=== PATIENT | female | born 1965 | race Caucasian/White ===

== ENCOUNTER 2019-10-23 09:44 | Emergency (ER) | payer MEDICAID ==
[~2019-10-23] VITALS: Ht 152.4 cm; Wt 65.0 kg
[2019-10-23 10:15] VITALS: BP 129/74
== END 2019-10-23 12:20 | disposition home or self-care (01) ==
LOC: ER 09:45
DX: J06.9 Acute upper respiratory infection, unspecified (principal); J45.909 Unspecified asthma, uncomplicated
CPT/HCPCS: 71045; 99283

== ENCOUNTER 2023-07-27 16:06 | Emergency (ER) | payer MEDICAID ==
[~2023-07-27] VITALS: Ht 154.9 cm; Wt 54.3 kg
[2023-07-27 17:38] LABS: BILIRUBIN,URINE NEGATIVE (Neg); CLARITY,URINE CLEAR (Clear); COLOR,URINE YELLOW (Yellow); GLUCOSE, URINE NEGATIVE (Neg); KETONES,URINE NEGATIVE (Neg); LEUKOCYTE ESTERASE ,URINE NEGATIVE (Neg); NITRITES, URINE NEGATIVE (Neg); OCCULT BLOOD,URINE NEGATIVE (Neg); PROTEIN,URINE NEGATIVE (Neg); UROBILINOGEN,URINE 0.2 E.U/dL (0.2-1.0)
[2023-07-27 17:39] LABS: UA COLLECTION TYPE NON-SPECIFIED
[2023-07-27 17:39] LABS: ALANINE AMINOTRANSFERASE 41 U/L (12-78); ALBUMIN 2.6 G/DL (3.4-5.0); ALBUMIN/GLOBULIN RATIO 0.9 (1.1-1.5); ALKALINE PHOSPHATASE 127 IU/L (46-116); ANION GAP 6 (8-16); ASPARTATE AMINO TRANSFERASE 48 U/L (10-37); BILIRUBIN,TOTAL 0.8 MG/DL (0.1-1.0); BLOOD UREA NITROGEN 7 MG/DL (7-18); BUN/CREATININE RATIO 11.1 (10.0-20.0); CALCIUM 8.8 MG/DL (8.5-10.1); CHLORIDE 100 MMOL/L (99-107); CREATININE 0.63 MG/DL (0.40-0.90); GLUCOSE 93 MG/DL (70-104); POTASSIUM 3.7 MMOL/L (3.5-5.1); SODIUM 136 MMOL/L (135-145); TOTAL CARBON DIOXIDE 30.4 MMOL/L (24-32); TOTAL PROTEIN 5.5 G/DL (6.4-8.2); eCRCL 72 ML/MIN; eGFR > 90 ML/MIN
[2023-07-27 17:40] LABS: BASOPHILS % (AUTO) 0.3 % (0-1); EOSINOPHILS # (AUTO) 0.2 X10'3 (0-0.9); HEMATOCRIT 40.2 % (35.0-45.0); HEMOGLOBIN 13.3 g/dl (12.0-16.0); LYMPHOCYTES # (AUTO) 1.8 X10'3 (1.1-4.8); LYMPHOCYTES % (AUTO) 25.4 % (21-51); MEAN CORPUSCULAR HEMOGLOBIN 33.7 PG (27.0-31.0); MEAN CORPUSCULAR HGB CONC 33.2 g/dL (33.0-36.5); MEAN CORPUSCULAR VOLUME 101.5 FL (78-98); MEAN PLATELET VOLUME 7.4 FL (7.4-10.4); MONOCYTES # (AUTO) 0.6 X10'3 (0-0.9); MONOCYTES % (AUTO) 8.2 % (2-12); NEUTROPHILS # (AUTO) 4.5 X10'3 (1.8-7.7); NEUTROPHILS % (AUTO) 63.1 % (42-75); PLATELET COUNT 246 X10'3 (140-440); RED BLOOD COUNT 3.96 X10'6 (4.20-5.60); RED CELL DISTRIBUTION WIDTH 16.4 % (11.5-14.5); WHITE BLOOD COUNT 7.1 X10'3 (4.5-11.0)
[2023-07-27 17:42] LABS: ETHANOL < 10 MG/DL (<10)
[2023-07-27 17:53] LABS: URINE AMPHETAMINE SCREEN NEGATIVE (Neg); URINE BARBITUATE SCREEN NEGATIVE (Neg); URINE BENZODIAZEPINES SCREEN NEGATIVE (Neg); URINE CANNABINOID SCREEN NEGATIVE (Neg); URINE COCAINE SCREEN NEGATIVE (Neg); URINE METHADONE SCREEN NEGATIVE (Neg); URINE OPIATE SCREEN NEGATIVE (Neg); URINE PHENCYCLIDINE SCREEN NEGATIVE (Neg)
[2023-07-27 21:16] VITALS: BP 105/57; PULSE 61; RESP 19; TEMP 98.3; O2SAT 93
== END 2023-07-27 21:25 | disposition home or self-care (01) ==
LOC: ER 16:07
DX: R53.1 Weakness (principal); J45.909 Unspecified asthma, uncomplicated; R29.6 Repeated falls; W19.XXXA Unspecified fall, initial encounter; Z91.81 History of falling; Y93.89 Activity, other specified; Y92.89 Other specified places as the place of occurrence of the external cause; Y99.8 Other external cause status
CPT/HCPCS: 36415; 70450; 71045; 80053; 80305; 80320; 81003; 82140; 82948; 84484; 85025; 93005; 99285

== ENCOUNTER 2023-10-31 09:13 | Inpatient (IN) | payer MEDICAID ==
[~2023-10-31] VITALS: Ht 152.4 cm; Wt 48.4 kg
[2023-10-31 12:07] LABS: BASOPHILS % (AUTO) 0.3 % (0-1); EOSINOPHILS % (AUTO) 0.8 % (0-6); HEMOGLOBIN 12.9 g/dl (12.0-16.0); LYMPHOCYTES # (AUTO) 1.2 X10'3 (1.1-4.8); LYMPHOCYTES % (AUTO) 27.1 % (21-51); MEAN CORPUSCULAR HEMOGLOBIN 34.9 PG (27.0-31.0); MEAN CORPUSCULAR VOLUME 102.6 FL (78-98); MEAN PLATELET VOLUME 7.2 FL (7.4-10.4); MONOCYTES # (AUTO) 0.5 X10'3 (0-0.9); MONOCYTES % (AUTO) 10.9 % (2-12); NEUTROPHILS # (AUTO) 2.7 X10'3 (1.8-7.7); NEUTROPHILS % (AUTO) 60.9 % (42-75); PLATELET COUNT 231 X10'3 (140-440); RED CELL DISTRIBUTION WIDTH 14.8 % (11.5-14.5); WHITE BLOOD COUNT 4.4 X10'3 (4.5-11.0)
[2023-10-31] MEDS: thiamine 100mg/ml 2ml inj. IV ONE (12:11)
[2023-10-31] MEDS: normal saline 1000ML IV soln IVB ONE (12:13)
[2023-10-31 13:11] LABS: ALBUMIN 1.7 G/DL (3.4-5.0); ANION GAP 6 (8-16); BLOOD UREA NITROGEN 8 MG/DL (7-18); BUN/CREATININE RATIO 11.4 (10.0-20.0); CALCIUM 7.9 MG/DL (8.5-10.1); CHLORIDE 102 MMOL/L (99-107); GLUCOSE 74 MG/DL (70-104); POTASSIUM 3.5 MMOL/L (3.5-5.1); SODIUM 139 MMOL/L (135-145); TOTAL CARBON DIOXIDE 31.4 MMOL/L (24-32); eCRCL 61 ML/MIN; eGFR 85 ML/MIN
[2023-10-31 13:12] LABS: ETHANOL < 10 MG/DL (<10)
[2023-10-31 13:29] LABS: BILIRUBIN,URINE NEGATIVE (Neg); CLARITY,URINE CLEAR (Clear); COLOR,URINE YELLOW (Yellow); GLUCOSE, URINE NEGATIVE (Neg); KETONES,URINE NEGATIVE (Neg); LEUKOCYTE ESTERASE ,URINE NEGATIVE (Neg); NITRITES, URINE NEGATIVE (Neg); OCCULT BLOOD,URINE NEGATIVE (Neg); PROTEIN,URINE NEGATIVE (Neg); UROBILINOGEN,URINE 0.2 E.U/dL (0.2-1.0)
[2023-10-31 13:32] LABS: UA COLLECTION TYPE CLN CATCH MIDSTREAM
[2023-10-31 13:43] LABS: URINE AMPHETAMINE SCREEN NEGATIVE (Neg); URINE BARBITUATE SCREEN NEGATIVE (Neg); URINE BENZODIAZEPINES SCREEN NEGATIVE (Neg); URINE CANNABINOID SCREEN NEGATIVE (Neg); URINE COCAINE SCREEN NEGATIVE (Neg); URINE METHADONE SCREEN NEGATIVE (Neg); URINE OPIATE SCREEN NEGATIVE (Neg); URINE PHENCYCLIDINE SCREEN NEGATIVE (Neg)
[2023-10-31] MEDS ORDERED: iohexol 300mg/ml 100ml inj. ONE (13:51)
[2023-10-31] MEDS ORDERED: OMEP40CA21 PO (14:30)
[2023-10-31] MEDS: LidoCAINE 2% Topical Jelly 11mL syringe (UROJET) TOP ONE (15:40)
[2023-10-31] MEDS ORDERED: LEVO25TA7 PO (19:17)
[2023-10-31] MEDS ORDERED: TRAM50TA2 PO (19:17)
[2023-10-31] MEDS ORDERED: SERT-434 (19:17)
[2023-10-31] MEDS ORDERED: CYCL-145 PO (19:17)
[2023-10-31] MEDS ORDERED: GABAPENTIN (19:47)
[2023-10-31] MEDS: HYDROmorphone inj. 0.5 MG/0.5 ML DISP.SYRIN IV ONE ×2 (22:03→22:05)
[2023-10-31] MEDS: cyclobenzaprine 10mg tablet PO ONE (22:51)
[2023-11-01] MEDS ORDERED: magnesium 2GM in 50ml NS 50 ML IV PRN (03:40)
[2023-11-01] MEDS ORDERED: potassium Cl 20 mEq SR tablet PO PRN ×2 (03:40)
[2023-11-01] MEDS ORDERED: mag hydrox/Alum hydrox/simeth 30ml oral suspension PO PRN (03:40)
[2023-11-01] MEDS ORDERED: morphine 2 MG/ML inj. syringe IV PRN (03:40)
[2023-11-01] MEDS ORDERED: potassium Cl 40MEQ/1/2NS 520ml 520 ML IV PRN (03:40)
[2023-11-01] MEDS ORDERED: magnesium 4gm in 100ml NS 100 ML IV PRN (03:40)
[2023-11-01] MEDS ORDERED: acetaminophen 325mg tablet PO PRN (03:40)
[2023-11-01] MEDS ORDERED: magnesium Cl slow-release 64mg tablet PO PRN (03:40)
[2023-11-01] MEDS ORDERED: ondansetron/PF 4mg/2ml inj IV PRN (03:40)
[2023-11-01] MEDS ORDERED: LORazepam 2 mg/ml vial IV PRN (04:25)
[2023-11-01] MEDS ORDERED: dicyclomine 10 MG capsule PO PRN (04:25)
[2023-11-01] MEDS ORDERED: LORazepam 1 MG tablet PO PRN (04:25)
[2023-11-01] MEDS: normal saline 1000ml 1,000 ML IV SCH (05:29)
[2023-11-01 07:00] VITALS: BP 112/63; PULSE 77; RESP 16; TEMP 98.6; O2SAT 99
[2023-11-01] MEDS: levoTHYROXINE 25mcg tablet PO SCH (07:57)
[2023-11-01] MEDS: traMADol 50MG tablet PO PRN (07:57)
[2023-11-01] MEDS: cyclobenzaprine 10mg tablet PO SCH (07:58)
[2023-11-01] MEDS: docusate sod 100mg capsule PO SCH (07:58)
[2023-11-01] MEDS: multivitamins, therapeutics tablet PO SCH (07:58)
[2023-11-01] MEDS: folic acid 1mg tablet PO SCH (07:58)
[2023-11-01 08:00] VITALS: RESP 16; O2SAT 99
[2023-11-01] MEDS: lactose-reduced food (Ensure Enlive) - 237ml bottle PO SCH (08:00)
[2023-11-01] MEDS ORDERED: HYDROmorphone 1 mg/ml syringe IV SCH (08:00)
[2023-11-01] MEDS ORDERED: thiamine 100mg/ml 2ml inj. IV SCH (08:00)
[2023-11-01] MEDS: heparin, porcine 5000 units/ml vial SQ SCH (08:00)
[2023-11-01] MEDS: K and/or MAG REPLACEMENT MC SCH (08:00)
[2023-11-01] MEDS: thiamine inj. 500 MG in normal saline 100ml IV soln 100 ML IV SCH (08:11)
[2023-11-01 08:34] LABS: C-REACTIVE PROTEIN 0.15 MG/DL (0.0-0.5); CHOL/HDL RATIO 1.8 (0.00-4.99); CHOLESTEROL 131 MG/DL (0-200); HDL CHOLESTEROL 73 MG/DL (35-60); LDL CHOLESTEROL 39 MG/DL (50-100); PHOSPHORUS 2.5 MG/DL (2.3-4.5); THYROID STIMULATING HORMONE 4.99 ulU/ml (0.34-4.50); TRIGLYCERIDES 68 MG/DL (20-135)
[2023-11-01 08:41] LABS: CREATINE KINASE 1149 U/L (26-192)
[2023-11-01 09:47] LABS: HIV ANTIBODY 1&2 RAPID NON-REACTIVE (Neg)
[2023-11-01 11:47] LABS: HEMOGLOBIN A1C 4.5 % (4.5-6.2)
[2023-11-01] MEDS: pantoprazole 40 MG vial IV ONE (14:48)
[2023-11-01] MEDS: calcium carbonate 500mg tablet PO SCH (17:30)
[2023-11-01 18:00] VITALS: BP 124/69; PULSE 81; RESP 16; TEMP 98.4; O2SAT 99
[2023-11-01] MEDS: cyanocobalamin 500mcg tablet PO SCH (18:00)
[2023-11-01 20:00] VITALS: RESP 16; O2SAT 98
[2023-11-01] MEDS: dexamethasone sod phosphate 10mg/ml inj IV SCH (20:11)
[2023-11-01 22:00] VITALS: BP 95/54; PULSE 96; RESP 18; TEMP 98.5; O2SAT 99
[2023-11-02 06:00] VITALS: BP 132/66; PULSE 82; RESP 18; TEMP 98.3; O2SAT 98
[2023-11-02 08:23] VITALS: RESP 18; O2SAT 98
[2023-11-02] MEDS: pantoprazole 40mg Tablet.DR PO SCH (08:30)
[2023-11-02] MEDS: ferrous sulfate 325mg tablet PO SCH (08:31)
[2023-11-02 08:54] LABS: EOSINOPHILS % (AUTO) 0 % (0-6); LYMPHOCYTES # (AUTO) 0.6 X10'3 (1.1-4.8)
[2023-11-02] MEDS: magnesium hydroxide 30ml (MOM) UD suspension PO PRN (08:54)
[2023-11-02 08:59] LABS: BASOPHILS % (AUTO) 0.2 % (0-1); HEMOGLOBIN 13.2 g/dl (12.0-16.0); LYMPHOCYTES % (AUTO) 4.9 % (21-51); MEAN CORPUSCULAR HEMOGLOBIN 35.4 PG (27.0-31.0); MEAN CORPUSCULAR HGB CONC 33.9 g/dL (33.0-36.5); MEAN CORPUSCULAR VOLUME 104.5 FL (78-98); MEAN PLATELET VOLUME 7.8 FL (7.4-10.4); MONOCYTES # (AUTO) 0.2 X10'3 (0-0.9); MONOCYTES % (AUTO) 1.5 % (2-12); NEUTROPHILS # (AUTO) 10.6 X10'3 (1.8-7.7); NEUTROPHILS % (AUTO) 93.4 % (42-75); PLATELET COUNT 220 X10'3 (140-440); RED BLOOD COUNT 3.74 X10'6 (4.20-5.60); RED CELL DISTRIBUTION WIDTH 15.1 % (11.5-14.5); WHITE BLOOD COUNT 11.4 X10'3 (4.5-11.0)
[2023-11-02 09:14] LABS: APTT 25 SECONDS (22-32); PROTHROMBIN TIME 10.4 SECONDS (9.0-12.0)
[2023-11-02 10:00] VITALS: BP 113/68; PULSE 70; RESP 16; TEMP 97.5; O2SAT 99
[2023-11-02 11:22] LABS: ALANINE AMINOTRANSFERASE 107 U/L (12-78); ALBUMIN 1.4 G/DL (3.4-5.0); ALBUMIN/GLOBULIN RATIO 0.4 (1.1-1.5); ALKALINE PHOSPHATASE 216 IU/L (46-116); ANION GAP 7 (8-16); ASPARTATE AMINO TRANSFERASE 150 U/L (10-37); BILIRUBIN,TOTAL 0.6 MG/DL (0.1-1.0); BLOOD UREA NITROGEN 5 MG/DL (7-18); BUN/CREATININE RATIO 8.1 (10.0-20.0); CALCIUM 7.1 MG/DL (8.5-10.1); CHLORIDE 105 MMOL/L (99-107); CREATININE 0.62 MG/DL (0.40-0.90); PHOSPHORUS 3.4 MG/DL (2.3-4.5); POTASSIUM 4.1 MMOL/L (3.5-5.1); SODIUM 136 MMOL/L (135-145); TOTAL CARBON DIOXIDE 23.8 MMOL/L (24-32); TOTAL PROTEIN 4.6 G/DL (6.4-8.2); eCRCL 69 ML/MIN; eGFR > 90 ML/MIN
[2023-11-02 11:58] LABS: GLUCOSE 118 MG/DL (70-104)
[2023-11-02] MEDS: cholecalciferol (vitamin D3) 1,000 unit (25mcg) tablet PO SCH (12:47)
[2023-11-02] MEDS: morphine 2 MG/ML inj. syringe IV PRN (14:15)
[2023-11-02 18:00] VITALS: BP 113/62; PULSE 88; RESP 14; TEMP 98.3; O2SAT 98
[2023-11-02 20:00] VITALS: RESP 14; O2SAT 98
[2023-11-02] MEDS: proCHLORperazine 10 MG/2 ml inj IV ONE (21:49)
[2023-11-02] MEDS: diphenhydrAMINE 50 mg/ml inj IV ONE (21:49)
[2023-11-02] MEDS: ketorolac tromethamine 15mg/ml inj. IV ONE (21:50)
[2023-11-02 22:00] VITALS: BP 115/78; PULSE 88; RESP 16; TEMP 97.5; O2SAT 97
[2023-11-03 06:00] VITALS: BP 107/68; PULSE 84; RESP 16; TEMP 98.7; O2SAT 96
[2023-11-03 06:48] LABS: BASOPHILS % (AUTO) 0.2 % (0-1); EOSINOPHILS % (AUTO) 0 % (0-6); HEMATOCRIT 35.6 % (35.0-45.0); HEMOGLOBIN 11.8 g/dl (12.0-16.0); LYMPHOCYTES # (AUTO) 0.6 X10'3 (1.1-4.8); LYMPHOCYTES % (AUTO) 4.9 % (21-51); MEAN CORPUSCULAR HEMOGLOBIN 34.5 PG (27.0-31.0); MEAN CORPUSCULAR HGB CONC 33.1 g/dL (33.0-36.5); MEAN CORPUSCULAR VOLUME 104.2 FL (78-98); MEAN PLATELET VOLUME 7.6 FL (7.4-10.4); MONOCYTES # (AUTO) 0.7 X10'3 (0-0.9); MONOCYTES % (AUTO) 5.8 % (2-12); NEUTROPHILS # (AUTO) 10.1 X10'3 (1.8-7.7); NEUTROPHILS % (AUTO) 89.1 % (42-75); PLATELET COUNT 173 X10'3 (140-440); RED BLOOD COUNT 3.42 X10'6 (4.20-5.60); RED CELL DISTRIBUTION WIDTH 15.3 % (11.5-14.5); WHITE BLOOD COUNT 11.3 X10'3 (4.5-11.0)
[2023-11-03 06:59] LABS: APTT 23 SECONDS (22-32)
[2023-11-03 07:02] LABS: PROTHROMBIN TIME 10.5 SECONDS (9.0-12.0)
[2023-11-03 07:19] LABS: ALANINE AMINOTRANSFERASE 117 U/L (12-78); ALBUMIN 1.3 G/DL (3.4-5.0); ALBUMIN/GLOBULIN RATIO 0.4 (1.1-1.5); ALKALINE PHOSPHATASE 180 IU/L (46-116); ANION GAP 7 (8-16); ASPARTATE AMINO TRANSFERASE 151 U/L (10-37); BILIRUBIN,TOTAL 0.5 MG/DL (0.1-1.0); BLOOD UREA NITROGEN 7 MG/DL (7-18); BUN/CREATININE RATIO 10.9 (10.0-20.0); C-REACTIVE PROTEIN 1.07 MG/DL (0.0-0.5); CALCIUM 7.2 MG/DL (8.5-10.1); CHLORIDE 106 MMOL/L (99-107); CREATININE 0.64 MG/DL (0.40-0.90); GLUCOSE 108 MG/DL (70-104); PHOSPHORUS 2.6 MG/DL (2.3-4.5); SODIUM 137 MMOL/L (135-145); TOTAL CARBON DIOXIDE 24.5 MMOL/L (24-32); TOTAL PROTEIN 4.2 G/DL (6.4-8.2); eCRCL 67 ML/MIN; eGFR > 90 ML/MIN
[2023-11-03 08:06] VITALS: RESP 14; O2SAT 96
[2023-11-03] MEDS: levoTHYROXINE 25mcg tablet PO SCH (08:07)
[2023-11-03] MEDS: folic acid 1mg tablet PO SCH (08:10)
[2023-11-03] MEDS ORDERED: cyanocobalamin 500mcg tablet PO SCH (08:10)
[2023-11-03] MEDS: cyanocobalamin 1,000 mcg/ml inj IM SCH (08:14)
[2023-11-03] MEDS: folic acid/vitamin B complex w/vitamin C 0.8mg tablet PO SCH (09:37)
[2023-11-03 09:56] LABS: RHEUM FACTOR QUAL REFLEX TITER NEGATIVE (Neg)
[2023-11-03 10:00] VITALS: BP 113/62; PULSE 82; RESP 16; TEMP 97.3; O2SAT 97
[2023-11-03 18:00] VITALS: BP 112/82; PULSE 92; RESP 16; TEMP 98.4; O2SAT 96
[2023-11-03 22:00] VITALS: BP 112/64; PULSE 97; RESP 16; TEMP 97.4; O2SAT 97
[2023-11-04 06:54] LABS: BASOPHILS # (AUTO) 0.1 X10'3 (0-0.2); BASOPHILS % (AUTO) 1.1 % (0-1); EOSINOPHILS % (AUTO) 0.4 % (0-6); HEMATOCRIT 33.9 % (35.0-45.0); HEMOGLOBIN 11.3 g/dl (12.0-16.0); LYMPHOCYTES # (AUTO) 1.9 X10'3 (1.1-4.8); LYMPHOCYTES % (AUTO) 24.7 % (21-51); MEAN CORPUSCULAR HEMOGLOBIN 34.9 PG (27.0-31.0); MEAN CORPUSCULAR HGB CONC 33.3 g/dL (33.0-36.5); MEAN CORPUSCULAR VOLUME 104.8 FL (78-98); MEAN PLATELET VOLUME 7.2 FL (7.4-10.4); MONOCYTES # (AUTO) 0.5 X10'3 (0-0.9); MONOCYTES % (AUTO) 6.9 % (2-12); NEUTROPHILS # (AUTO) 5.2 X10'3 (1.8-7.7); NEUTROPHILS % (AUTO) 66.9 % (42-75); PLATELET COUNT 169 X10'3 (140-440); RED BLOOD COUNT 3.24 X10'6 (4.20-5.60); RED CELL DISTRIBUTION WIDTH 15.6 % (11.5-14.5); WHITE BLOOD COUNT 7.8 X10'3 (4.5-11.0)
[2023-11-04 07:00] VITALS: BP 122/70; PULSE 77; RESP 13; TEMP 97.2; O2SAT 95
[2023-11-04 07:11] LABS: APTT 23 SECONDS (22-32); INR 0.9 INR; PROTHROMBIN TIME 10.1 SECONDS (9.0-12.0)
[2023-11-04 07:46] LABS: ALANINE AMINOTRANSFERASE 130 U/L (12-78); ALBUMIN 1.1 G/DL (3.4-5.0); ALBUMIN/GLOBULIN RATIO 0.4 (1.1-1.5); ALKALINE PHOSPHATASE 152 IU/L (46-116); ANION GAP 4 (8-16); ASPARTATE AMINO TRANSFERASE 147 U/L (10-37); BILIRUBIN,TOTAL 0.4 MG/DL (0.1-1.0); BLOOD UREA NITROGEN 6 MG/DL (7-18); BUN/CREATININE RATIO 11.8 (10.0-20.0); CALCIUM 7.2 MG/DL (8.5-10.1); CHLORIDE 111 MMOL/L (99-107); CREATININE 0.51 MG/DL (0.40-0.90); GLUCOSE 62 MG/DL (70-104); MAGNESIUM 2.2 MG/DL (1.5-2.4); PHOSPHORUS 1.7 MG/DL (2.3-4.5); POTASSIUM 3.7 MMOL/L (3.5-5.1); SODIUM 140 MMOL/L (135-145); TOTAL PROTEIN 3.8 G/DL (6.4-8.2); eCRCL 84 ML/MIN; eGFR > 90 ML/MIN
[2023-11-04 10:00] VITALS: BP 108/63; PULSE 91; RESP 18; TEMP 97.6; O2SAT 97; O2SAT 98
[2023-11-04] MEDS ORDERED: ergocalciferol (vit D2) capsule 50,000 UNITS (1,250mcg) CAPSULE PO SCH (10:40)
[2023-11-04 18:00] VITALS: BP 116/71; PULSE 78; RESP 16; TEMP 97.5; O2SAT 96
[2023-11-04 22:00] VITALS: BP 117/69; PULSE 87; RESP 16; TEMP 98.2; O2SAT 95
[2023-11-05 06:00] VITALS: BP 122/70; PULSE 77; RESP 16; TEMP 98.3; O2SAT 96
[2023-11-05 07:18] LABS: HEPATITIS C VIRUS ANTIBODY Non Reactive (Non Reactive)
[2023-11-05 08:33] LABS: BASOPHILS % (AUTO) 0.5 % (0-1); EOSINOPHILS # (AUTO) 0.1 X10'3 (0-0.9); EOSINOPHILS % (AUTO) 1.5 % (0-6); HEMATOCRIT 36.9 % (35.0-45.0); HEMOGLOBIN 12.5 g/dl (12.0-16.0); LYMPHOCYTES # (AUTO) 2.1 X10'3 (1.1-4.8); LYMPHOCYTES % (AUTO) 34.6 % (21-51); MEAN CORPUSCULAR HEMOGLOBIN 35.2 PG (27.0-31.0); MEAN CORPUSCULAR VOLUME 103.7 FL (78-98); MEAN PLATELET VOLUME 7.8 FL (7.4-10.4); MONOCYTES # (AUTO) 0.3 X10'3 (0-0.9); MONOCYTES % (AUTO) 5.7 % (2-12); NEUTROPHILS # (AUTO) 3.5 X10'3 (1.8-7.7); NEUTROPHILS % (AUTO) 57.7 % (42-75); PLATELET COUNT 208 X10'3 (140-440); RED BLOOD COUNT 3.56 X10'6 (4.20-5.60); RED CELL DISTRIBUTION WIDTH 15.3 % (11.5-14.5); WHITE BLOOD COUNT 6.1 X10'3 (4.5-11.0)
[2023-11-05 09:00] VITALS: RESP 16; O2SAT 95
[2023-11-05 09:09] LABS: ALANINE AMINOTRANSFERASE 136 U/L (12-78); ALBUMIN 1.2 G/DL (3.4-5.0); ALBUMIN/GLOBULIN RATIO 0.4 (1.1-1.5); ALKALINE PHOSPHATASE 178 IU/L (46-116); ANION GAP 5 (8-16); ASPARTATE AMINO TRANSFERASE 125 U/L (10-37); BILIRUBIN,TOTAL 0.4 MG/DL (0.1-1.0); BLOOD UREA NITROGEN 5 MG/DL (7-18); BUN/CREATININE RATIO 11.1 (10.0-20.0); CALCIUM 7.2 MG/DL (8.5-10.1); CHLORIDE 109 MMOL/L (99-107); CREATININE 0.45 MG/DL (0.40-0.90); GLUCOSE 69 MG/DL (70-104); MAGNESIUM 1.9 MG/DL (1.5-2.4); PHOSPHORUS 1.4 MG/DL (2.3-4.5); POTASSIUM 3.8 MMOL/L (3.5-5.1); SODIUM 139 MMOL/L (135-145); TOTAL CARBON DIOXIDE 24.9 MMOL/L (24-32); TOTAL PROTEIN 4.2 G/DL (6.4-8.2); eCRCL 95 ML/MIN; eGFR > 90 ML/MIN
[2023-11-05 09:16] LABS: INR 0.9 INR; PROTHROMBIN TIME 9.9 SECONDS (9.0-12.0)
[2023-11-05 10:00] VITALS: BP 144/78; PULSE 80; RESP 15; TEMP 98.9; O2SAT 100
[2023-11-05 18:59] VITALS: BP 128/74; PULSE 89; RESP 16; TEMP 98.4; O2SAT 99
[2023-11-05 22:00] VITALS: BP 130/73; PULSE 89; RESP 16; TEMP 97.8; O2SAT 96
[2023-11-06 06:00] VITALS: BP 151/73; PULSE 83; RESP 14; TEMP 97.7; O2SAT 97
[2023-11-06 07:25] LABS: BASOPHILS % (AUTO) 0.3 % (0-1); EOSINOPHILS # (AUTO) 0.1 X10'3 (0-0.9); EOSINOPHILS % (AUTO) 1.8 % (0-6); HEMATOCRIT 35.2 % (35.0-45.0); HEMOGLOBIN 11.8 g/dl (12.0-16.0); LYMPHOCYTES # (AUTO) 1.4 X10'3 (1.1-4.8); LYMPHOCYTES % (AUTO) 31.3 % (21-51); MEAN CORPUSCULAR HEMOGLOBIN 34.6 PG (27.0-31.0); MEAN CORPUSCULAR HGB CONC 33.6 g/dL (33.0-36.5); MEAN CORPUSCULAR VOLUME 102.8 FL (78-98); MEAN PLATELET VOLUME 7.2 FL (7.4-10.4); MONOCYTES # (AUTO) 0.3 X10'3 (0-0.9); MONOCYTES % (AUTO) 6.6 % (2-12); NEUTROPHILS # (AUTO) 2.7 X10'3 (1.8-7.7); PLATELET COUNT 203 X10'3 (140-440); RED BLOOD COUNT 3.43 X10'6 (4.20-5.60); RED CELL DISTRIBUTION WIDTH 15.2 % (11.5-14.5); WHITE BLOOD COUNT 4.4 X10'3 (4.5-11.0)
[2023-11-06 07:31] LABS: PROTHROMBIN TIME 10.1 SECONDS (9.0-12.0)
[2023-11-06 07:50] LABS: ALANINE AMINOTRANSFERASE 145 U/L (12-78); ALBUMIN 1.1 G/DL (3.4-5.0); ALBUMIN/GLOBULIN RATIO 0.4 (1.1-1.5); ALKALINE PHOSPHATASE 162 IU/L (46-116); ANION GAP 3 (8-16); ASPARTATE AMINO TRANSFERASE 127 U/L (10-37); BILIRUBIN,TOTAL 0.4 MG/DL (0.1-1.0); BLOOD UREA NITROGEN 5 MG/DL (7-18); BUN/CREATININE RATIO 12.2 (10.0-20.0); CALCIUM 7.1 MG/DL (8.5-10.1); CHLORIDE 108 MMOL/L (99-107); CREATININE 0.41 MG/DL (0.40-0.90); GLUCOSE 67 MG/DL (70-104); MAGNESIUM 1.9 MG/DL (1.5-2.4); PHOSPHORUS 1.4 MG/DL (2.3-4.5); POTASSIUM 3.7 MMOL/L (3.5-5.1); SODIUM 139 MMOL/L (135-145); TOTAL CARBON DIOXIDE 27.6 MMOL/L (24-32); TOTAL PROTEIN 4.2 G/DL (6.4-8.2); eCRCL 105 ML/MIN; eGFR > 90 ML/MIN
[2023-11-06 10:00] VITALS: BP 109/72; PULSE 96; RESP 18; TEMP 97.7; O2SAT 99
[2023-11-06] MEDS: LORazepam 1 MG tablet PO PRN (11:09)
[2023-11-06] MEDS ORDERED: GABA300C PO ×2 (12:22)
[2023-11-06 18:00] VITALS: BP 136/83; PULSE 108; RESP 14; TEMP 98; O2SAT 98
[2023-11-06] MEDS: gabapentin 300mg capsule PO SCH (20:29)
[2023-11-06 22:00] VITALS: BP 123/69; PULSE 80; RESP 16; TEMP 97.4; O2SAT 96
[2023-11-07 06:00] VITALS: BP 124/74; PULSE 77; RESP 16; TEMP 97.2; O2SAT 92
[2023-11-07] MEDS: gabapentin 300mg capsule PO SCH (07:05)
[2023-11-07 08:00] VITALS: RESP 16; O2SAT 96
[2023-11-07 13:00] VITALS: BP 107/68; PULSE 89; RESP 16; TEMP 97.3; O2SAT 89
[2023-11-07 20:00] VITALS: RESP 16; O2SAT 97
[2023-11-07 22:00] VITALS: BP 109/64; PULSE 80; RESP 12; TEMP 98.2; O2SAT 95
[2023-11-08 06:00] VITALS: BP 124/77; PULSE 75; RESP 14; TEMP 98; O2SAT 96
[2023-11-08 08:00] VITALS: RESP 15; O2SAT 95
[2023-11-08 10:00] VITALS: BP 116/70; PULSE 95; RESP 17; TEMP 98.6; O2SAT 96
[2023-11-08 15:49] LABS: BILIRUBIN,URINE NEGATIVE (Neg); CLARITY,URINE SLIGHTLY CLOUDY (Clear); COLOR,URINE YELLOW (Yellow); GLUCOSE, URINE NEGATIVE (Neg); KETONES,URINE NEGATIVE (Neg); LEUKOCYTE ESTERASE ,URINE LARGE (Neg); NITRITES, URINE NEGATIVE (Neg); OCCULT BLOOD,URINE SMALL (Neg); PROTEIN,URINE NEGATIVE (Neg); UROBILINOGEN,URINE 0.2 E.U/dL (0.2-1.0)
[2023-11-08 15:55] LABS: SQUAMOUS EPITHELIAL CELL,UR MANY /LPF (FEW); UA COLLECTION TYPE NON-SPECIFIED
[2023-11-08 15:56] LABS: BACTERIA,URINE FEW /HPF (Neg); RBC,URINE 0-2 /HPF (0-2); TRANSITIONAL EPI CELLS,URINE FEW /HPF; WBC CLUMPS,URINE FEW /HPF (NEGATIVE); WBC,URINE TNTC /HPF (0-4)
[2023-11-08] MEDS: cephalexin 250mg capsule PO SCH (17:54)
[2023-11-08 18:00] VITALS: BP 138/81; PULSE 73; RESP 16; TEMP 98.2; O2SAT 96
[2023-11-08 20:20] VITALS: RESP 16; O2SAT 96
[2023-11-08 22:00] VITALS: BP 112/65; PULSE 82; RESP 14; TEMP 97.9; O2SAT 95
[2023-11-09 06:00] VITALS: BP 117/73; PULSE 77; RESP 15; TEMP 97.6; O2SAT 95
[2023-11-09 08:00] VITALS: RESP 15; O2SAT 95
[2023-11-09 10:00] VITALS: BP 139/83; PULSE 87; RESP 16; TEMP 97.9; O2SAT 95
[2023-11-09 11:25] VITALS: RESP 16
[2023-11-10] MEDS ORDERED: cyanocobalamin 1,000 mcg/ml inj IM SCH (08:00)
== END 2023-11-09 15:53 | DRG 58 ==
LOC: ER 09:14 → ED HOLD 11-01 03:45 → ORTHO 4S 11-01 07:06
PROVIDERS: ADMIT Internal Medicine; ATTEND Internal Medicine
PROC: BW211ZZ Computerized Tomography (CT Scan) of Abdomen and Pelvis using Low Osmolar Contrast (ICD-10-PCS; principal; 2023-11-01)
DX: G72.89 Other specified myopathies (principal); E43 Unspecified severe protein-calorie malnutrition; K70.10 Alcoholic hepatitis without ascites; D53.9 Nutritional anemia, unspecified; E86.0 Dehydration; G89.29 Other chronic pain; M54.9 Dorsalgia, unspecified; M79.604 Pain in right leg; E53.8 Deficiency of other specified B group vitamins; F10.20 Alcohol dependence, uncomplicated; N39.0 Urinary tract infection, site not specified; M48.061 Spinal stenosis, lumbar region without neurogenic claudication; M79.605 Pain in left leg; J45.909 Unspecified asthma, uncomplicated; M48.07 Spinal stenosis, lumbosacral region; R13.10 Dysphagia, unspecified; M35.3 Polymyalgia rheumatica; Z98.84 Bariatric surgery status; Z90.710 Acquired absence of both cervix and uterus; Z90.49 Acquired absence of other specified parts of digestive tract; Z98.1 Arthrodesis status; Z68.20 Body mass index [BMI] 20.0-20.9, adult
CPT/HCPCS: 36415; 70551; 71045; 72148; 74177; 80048; 80053; 80061; 80305; 80320; 81001; 81003; 82550; 82607; 82948; 83036; 83605; 83735; 84100; 84145; 84439; 84443; 85025; 85610; 85651; 85730; 86038; 86140; 86430; 86592; 86703; 86803; 87040; 87081; 87522; 92508; 92616; 93306; 96374; 96375; 97110; 97163; 97530; 99285; A4314; A6449; C9113; G0378; J0780; J1100; J1170; J1200; J1644; J1885; J2270; J3411; J3420; J3490; J7030; J7040; Q9967

== ENCOUNTER 2024-02-11 08:33 | Emergency (ER) | payer MEDICAID ==
[~2024-02-11] VITALS: Ht 152.4 cm; Wt 41.4 kg
[~2024-02-11 08:33] MED LIST: CYCL-145 PO; GABA300C PO; GABAPENTIN; LEVO25TA7 PO; SERT-434; TRAM50TA2 PO
[2024-02-11] MEDS ORDERED: CEPH-585 PO (09:23)
[2024-02-11] MEDS: TETanus/Pertussis (Acell)/Diphther VAC/PF (Tdap-Adult) 0.5ml syringe IMVAC ONE (10:38)
[2024-02-11] MEDS: bacitracin 15gm ointment TP ONE (11:16)
[2024-02-11] MEDS: LIDOcaine/epinephrine/tetracaine TOPICAL sol 3 ML syringe TOP ONE (11:26)
[2024-02-11 12:28] VITALS: BP 119/77; PULSE 80; RESP 17; TEMP 97.9; O2SAT 97
== END 2024-02-11 12:48 | disposition home or self-care (01) ==
LOC: ER 08:33
DX: S01.01XA Laceration without foreign body of scalp, initial encounter (principal); J45.909 Unspecified asthma, uncomplicated; Z79.2 Long term (current) use of antibiotics; Z79.899 Other long term (current) drug therapy; Z90.710 Acquired absence of both cervix and uterus; Z98.890 Other specified postprocedural states; Z90.49 Acquired absence of other specified parts of digestive tract; W18.39XA Other fall on same level, initial encounter; Y93.89 Activity, other specified; Y92.89 Other specified places as the place of occurrence of the external cause; Y99.8 Other external cause status
CPT/HCPCS: 12002; 90471; 90715; 99284; J3490

== ENCOUNTER 2025-05-13 08:41 | Emergency (ER) | payer MEDICAID ==
[~2025-05-13] VITALS: Ht 152.4 cm; Wt 57.9 kg
[2025-05-13 08:51] VITALS: BP 147/79; PULSE 90; TEMP 97.5; O2SAT 99
[2025-05-13] MEDS ORDERED: CYCL-1 PO (09:51)
[2025-05-13] MEDS ORDERED: TRAM50TA2 PO (09:51)
--- NOTE | 2025-05-13 09:52 | Physician Documentation ---
History of Present Illness ~ Chief Complaint: Neck pain Stated Complaint: NECK PAIN Time Seen by MD: 09:16 OK to notify your PCP?: Yes Source: patient Mode of Arrival: POV Exam Limitations: no limitations HPI 59-year-old female who is here with acute on chronic neck pain. She states her neck pain was exacerbated yesterday and she attributes this to having to wear an apron around her neck at her new job. She had a steroid injection by Dr. Macdonald for her neck pain of last week. She states her last MRI of her cervical spine was in March of this year. Pain radiates into her right arm. She denies any precipitating injury other than just wearing the [place] and around her neck. She also states that she usually takes tramadol and Flexeril for her chronic neck pain but ran out of these medications a few days ago as well and has not been able to get them refilled. She is requesting these medications be refilled for a temporary supply as well as a work note. Medication Reconciliation Allergies: Coded Allergies: No Known Allergies (Unverified , 05/13/25) Scheduled Cyclobenzaprine HCl (Cyclobenzaprine HCl), 1 TAB PO TID, (Reported) Cyclobenzaprine* (Cyclobenzaprine*), 1 TAB PO BIDAC Gabapentin (Neurontin), 2 CAP PO DAILY, (Reported) Gabapentin (Neurontin), 3 CAP PO HS, (Reported) Levothyroxine Sodium (Levothyroxine Sodium), 1 TAB PO QAM, (Reported) Scheduled PRN Tramadol HCl (Tramadol HCl), 1 TAB PO TID PRN for pain Tramadol Hcl (Tramadol Hcl), 1 TAB PO TID PRN for pain, (Reported) Miscellaneous Medications Sertraline HCl (Sertraline HCl), (Reported) [Gabapentin], (Reported) Past Medical History Past Medical History: Asthma, Chronic Pain Past Surgical History: cholecystectomy, gastric bypass, hysterectomy, orthopedic surgeries Patient History: Cervical cancer MOTHER FH: Alzheimers disease GRANDFATHER OR GRANDMOTHER, Name: Grandfather FH: asthma GRANDFATHER OR GRANDMOTHER, Name: Grandmother FH: cardiovascular disease GRANDFATHER OR GRANDMOTHER, Name: Grandmother FATHER, FH: liver cancer GRANDFATHER OR GRANDMOTHER, Name: Grandfather FH: stroke FATHER, Pacemaker FATHER, Alcohol Use: None Lives with: Spouse Lives In: Home Review of Systems All Other Systems at this time: Reviewed and Negative Physical Exam Vital Signs: Temperature: 97.5, Source: Temporal, Heart Rate: 90, Respiratory Rate: 16, BP: 147/79, Pulse Oximetry: 99, Weight: 57.900 Oxygen Flow Rate: 0 Physical Exam BTOGENERAL: Alert, no acute distress. HEENT: NCAT, EOMI, PERRL, normal oropharynx, moist oral mucosa. NECK: Supple, trachea midline. CARDIAC: Regular rate and rhythm, no murmurs, rubs, or gallops. RESPIRATORY: Equal breath sounds, clear to auscultation bilaterally, no respiratory distress. GASTROINTESTINAL: Non distended, soft, nontender, No guarding or rebound. MUSCULOSKELETAL: TTP OVER PARASPINAL MUSCLES OF CERVICAL SPINE, NO MIDLINE TTP. DECREASED AROM WITH FLEXION AND EXTENSION AND LATERAL ROTATION. Normal gait. NEUROLOGICAL: Awake, alert, and oriented x 3. SKIN: Warm/dry, no pallor, no rash. PSYCH: Alert and appropriate. Affect congruent with mood. Speech is clear. Good eye contact. Progress Results/Orders Results/Orders Completed Orders - MARIANNA MCKINLEY Cyclobenzaprine Tablet (Flexeril Tablet) (05/13/25 10:25) Tramadol Tablet (Ultram Tablet) (05/13/25 10:25) Vital Signs 05/13/25 05/13/25 08:51 10:35 Temp 97.5 Pulse 90 Resp 16 16 B/P (MAP) 147/79 Pulse Ox 99 O2 Flow Rate 0 Medical Decision Making Differential Dx:Considerations: Include: Cervical muscle spasm, Discitis, DJD, Meningitis, Thyroiditis, Torticollis, Vertebral artery dissect. Departure Time of Disposition: 09:52 Disposition: 01 HOME / SELF CARE / HOMELESS Impression: Primary Impression: Neck pain Condition: Stable Discharge Instructions: Acute Torticollis, Adult Additional Instructions: REFILLED TRAMADOL AND FLEXERIL WORK NOTE GIVEN FOR 2DAYS YOU NEED TO F/U WITH YOUR PCP Departure Forms: Excuse form Work or School Excused From: Work Excuse beginning now through the following date: May 15, 2025 May Return but still avoid physical Activity from now until: May 16, 2025 Referrals: NO PRIMARY CARE PROVIDER (PCP) Prescriptions Cyclobenzaprine* (Cyclobenzaprine*) 10 Mg Tablet 1 TAB PO BIDAC for muscle spasms for 7 Days, #14 TAB 0 Refills Prov: MARIANNA MCKINLEY 05/13/25 Tramadol HCl (Tramadol HCl) 50 Mg Tablet 1 TAB PO TID PRN for pain for 7 Days, #21 TAB DX: M54.2 Prov: MARIANNA MCKINLEY 05/13/25 Education Educated: Patient Educated regarding: diagnosis, treatment, need for follow up Signature Scribe Signature: x Attestation: x MARIANNA MCKINLEY May 13, 2025 09:52
[2025-05-13 10:35] VITALS: RESP 16
== END 2025-05-13 10:38 | disposition home or self-care (01) ==
LOC: ER 08:42
DX: M54.2 Cervicalgia (principal); J45.909 Unspecified asthma, uncomplicated; Z88.8 Allergy status to other drugs, medicaments and biological substances; Z90.49 Acquired absence of other specified parts of digestive tract; Z90.710 Acquired absence of both cervix and uterus; Z98.84 Bariatric surgery status
CPT/HCPCS: 99283